=== PATIENT | male | born 1965 | race Caucasian/White ===

== ENCOUNTER 2024-12-29 07:32 | Outpatient (CLI) | payer BC ==
[2024-12-29 08:39] LABS: Estimated GFR - POC 100.0
== END 2024-12-29 07:33 | disposition home or self-care (01) ==
LOC: SCSMRI 07:32
PROVIDERS: ATTEND Urology
DX: R97.20 Elevated prostate specific antigen [PSA] (principal)
CPT/HCPCS: 36415; 72197; 82565